=== PATIENT | male | born 1965 | race Two or more races ===

== ENCOUNTER 2018-12-13 17:09 | Emergency (ER) | payer BC ==
[~2018-12-13] VITALS: Ht 165.1 cm; Wt 117.5 kg
--- NOTE | 2018-12-13 17:15 | NUR ---
C/O WORSENING RIGHT LOWER EXTREMITY PAIN, SWELLING AND REDNESS. PT AAOX4, VSS. DENIES CP, SOB, DIZZINESS, N/V, WEAKNESS @ THIS TIME. AWAITING EVAL BY MD & WILL CONT TO MONITOR.
--- NOTE | 2018-12-13 19:47 | NUR ---
Patient discharged to home in stable condition. Written and verbal after care instructions given. Patient verbalizes understanding of instruction.
[2018-12-13 19:48] VITALS: BP 132/78
== END 2018-12-13 19:49 | disposition home or self-care (01) ==
LOC: ER 17:14
DX: R60.0 Localized edema (principal)
CPT/HCPCS: 93971; 99284; A4606; Z7610

== ENCOUNTER 2020-04-03 11:40 | Emergency (ER) | payer BC, OTHER ==
[~2020-04-03] VITALS: Ht 182.9 cm; Wt 115.7 kg
--- NOTE | 2020-04-03 11:46 | NUR ---
pt bibra from home to er bed 09 c/o L sided chest pain radiating to LUE on and off for the past 3 days. 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 awaiting md beard.
--- NOTE | 2020-04-03 11:53 | NUR ---
radiology qat bedside for chest xray.
[2020-04-03] MEDS ORDERED: NITROGLYCERIN PACKET 1 GM PACKET ONE (11:55)
[2020-04-03] MEDS ORDERED: NITROGLYCERIN PACKET 1 GM PACKET TD ONE (12:00)
[2020-04-03 12:02] LABS: BASOPHILS # (AUTO) 0.1 /CMM (0.0-0.2); BASOPHILS % (AUTO) 0.8 % (0.0-2.0); EOSINOPHILS % (AUTO) 2.3 % (0.0-6.0); HEMATOCRIT 46 % (39-51); HEMOGLOBIN 15.4 g/dL (13.5-17.5); LYMPHOCYTES # (AUTO) 1.6 /CMM (0.8-4.8); LYMPHOCYTES % (AUTO) 26.7 % (20.0-44.0); MEAN CORPUSCULAR HGB CONC 34 g/dl (31.0-36.0); MEAN CORPUSCULAR VOLUME 85 fL (80-96); MONOCYTES # (AUTO) 0.4 /CMM (0.1-1.30); MONOCYTES % (AUTO) 7.5 % (2.0-12.0); NEUTROPHILS # (AUTO) 3.8 /CMM (1.8-8.9); NEUTROPHILS % (AUTO) 62.7 % (43.0-81.0); PLATELET COUNT (AUTO) 221 /CMM (150-450); RED BLOOD CELL COUNT(AUTO) 5.37 MIL/uL (4.5-6.0)
--- NOTE | 2020-04-03 12:06 | NUR ---
pt states took viagra last night. no active chest pain. dr hwang aware.
[2020-04-03 12:12] LABS: CALCIUM, SERUM 8.4 mg/dL (8.5-10.1); CARBON DIOXIDE 31 mmol/L (21-32); CHLORIDE 101 mmol/L (98-107); CREATININE 0.9 mg/dL (0.6-1.3); GLUCOSE 112 mg/dL (74-106); POTASSIUM 4.3 mmol/L (3.5-5.1); SODIUM SERUM 137 mmol/L (136-145); UREA NITROGEN, BLOOD 22 mg/dL (7-18)
[2020-04-03 12:18] LABS: ALANINE AMINOTRANSFERASE 53 U/L (12-78); ALBUMIN 3.6 g/dL (3.4-5.0); ALKALINE PHOSPHATASE 68 U/L (46-116); ASPARTATE AMINOTRANSFERASE 22 U/L (15-37); BILIRUBIN,DIRECT 0.1 mg/dL (0.0-0.2); BILIRUBIN,TOTAL 0.4 mg/dL (0.2-1.0); TOTAL PROTEIN, SERUM 7.3 g/dL (6.4-8.2)
--- NOTE | 2020-04-03 15:00 | NUR ---
CALLED [facility] ITS SOFI
--- NOTE | 2020-04-03 15:25 | NUR ---
GOT BED 315-2
--- NOTE | 2020-04-03 15:35 | NUR ---
DR CANNON DOESN'T WANT TO ADMIT PATIENT AND INSTEAD WILL COME TO SEE PATIENT PER DR DAVIS
[2020-04-03] MEDS ORDERED: IV NS 0.9% 250 ML IV ONE (18:48)
[2020-04-03] MEDS ORDERED: CT SWABBABLE VALVE TRANS SET 1 EA INFUS.SET MC ONE (18:48)
[2020-04-03] MEDS ORDERED: IOHEXOL-350 100 ML VIAL IV ONE (18:48)
[2020-04-03] MEDS ORDERED: NITROGLYCERIN 0.4 MG/TAB BOTTLE ONE (19:06)
[2020-04-03] MEDS ORDERED: METOPROLOL TARTRATE INJ 5 MG/5 ML AMPUL ONE (19:07)
--- NOTE | 2020-04-03 19:20 | NUR ---
report to campus safety officer nurse andres rn for akash.
--- NOTE | 2020-04-03 19:21 | NUR ---
Brought to ct
--- NOTE | 2020-04-03 20:30 | NUR ---
BROUGHT BACK FROM CT
--- NOTE | 2020-04-03 22:43 | NUR ---
Patient discharged to home in stable condition. Written and verbal after care instructions given. Patient verbalizes understanding of instruction and RX. PT ambulated with steady gait. IV removed. Catheter intact and site benign. Pressure and 4x4 applied to site. No bleeding noted.
[2020-04-03 22:44] VITALS: BP 135/74
== END 2020-04-03 22:44 | disposition home or self-care (01) ==
LOC: ER 11:41
DX: I20.8 Other forms of angina pectoris (principal); E11.9 Type 2 diabetes mellitus without complications; E66.8 Other obesity; Z68.34 Body mass index [BMI] 34.0-34.9, adult
CPT/HCPCS: 36415; 71045; 75574; 80048; 80076; 84484 ×2; 85025; 87081; 93005; 99285; J3490; J7050; Q9967

== ENCOUNTER 2020-09-25 16:42 | Emergency (ER) | payer OTHER ==
[~2020-09-25] VITALS: Ht 167.6 cm; Wt 115.2 kg
--- NOTE | 2020-09-25 17:03 | NUR ---
SEEN AND EVALUATED BY LEAD MASSAGE THERAPIST WITH NEW ORDERS NOTED
--- NOTE | 2020-09-25 17:05 | NUR ---
aaox3, came to ER c/o right flank pain radiates to right lower abdomen since yesterday. RR is even and unlabored with NAD noted. Skin is warm and non diaphoretic. Awaiting md for eval.
[2020-09-25] MEDS ORDERED: ONDANSETRON HCL/PF 4 MG/2 ML VIAL ONE (17:10)
[2020-09-25] MEDS ORDERED: MORPHINE SULFATE INJ 4 MG/ML DISP.SYRIN ONE (17:11)
[2020-09-25] MEDS ORDERED: KETOROLAC TROMETHAMINE INJ 30 MG/ML VIAL ONE (17:11)
[2020-09-25 17:25] LABS: BASOPHILS # (AUTO) 0.1 /CMM (0.0-0.2); BASOPHILS % (AUTO) 1.1 % (0.0-2.0); EOSINOPHILS % (AUTO) 2.5 % (0.0-6.0); HEMATOCRIT 44 % (39-51); HEMOGLOBIN 14.9 g/dL (13.5-17.5); LYMPHOCYTES # (AUTO) 1.6 /CMM (0.8-4.8); LYMPHOCYTES % (AUTO) 29.5 % (20.0-44.0); MEAN CORPUSCULAR HGB CONC 34 g/dl (31.0-36.0); MEAN CORPUSCULAR VOLUME 86 fL (80-96); MONOCYTES # (AUTO) 0.4 /CMM (0.1-1.30); MONOCYTES % (AUTO) 6.7 % (2.0-12.0); NEUTROPHILS # (AUTO) 3.2 /CMM (1.8-8.9); NEUTROPHILS % (AUTO) 60.2 % (43.0-81.0); PLATELET COUNT (AUTO) 214 /CMM (150-450); RED BLOOD CELL COUNT(AUTO) 5.15 MIL/uL (4.5-6.0); WHITE BLOOD COUNT (AUTO) 5.3 K/uL (4.3-11.0)
[2020-09-25] MEDS ORDERED: KETOROLAC TROMETHAMINE INJ 30 MG/ML VIAL IV ONE (17:30)
[2020-09-25] MEDS ORDERED: MORPHINE SULFATE INJ 2 MG/ML DISP.SYRIN IV ONE (17:30)
[2020-09-25] MEDS ORDERED: ONDANSETRON HCL/PF 4 MG/2 ML VIAL IVP ONE (17:30)
[2020-09-25] MEDS ORDERED: IV NS 0.9% 1,000 ML BAG IV ONE (17:30)
[2020-09-25 17:43] LABS: CALCIUM, SERUM 8.5 mg/dL (8.5-10.1); CREATININE 0.9 mg/dL (0.6-1.3)
[2020-09-25 17:50] LABS: ALBUMIN 3.5 g/dL (3.4-5.0); BILIRUBIN,DIRECT 0.1 mg/dL (0.0-0.2); BILIRUBIN,TOTAL 0.4 mg/dL (0.2-1.0); TOTAL PROTEIN, SERUM 7.4 g/dL (6.4-8.2)
--- NOTE | 2020-09-25 18:20 | NUR ---
URINE COLLECTED AND SENT TO LAB
[2020-09-25 18:24] LABS: APPEARANCE,URINE CLEAR (CLEAR); BILIRUBIN,URINE NEGATIVE (NEGATIVE); BLOOD, URINE NEGATIVE Ery/uL (NEGATIVE); COLOR,URINE YELLOW (YELLOW); KETONES,URINE NEGATIVE (NEGATIVE); LEUKOCYTE ESTERASE ,URINE NEGATIVE (NEGATIVE); NITRITE, URINE NEGATIVE (NEGATIVE); PH,URINE 5.5 (5.0-8.0); PROTEIN,URINE NEGATIVE (NEGATIVE); UGLUCOSE NEGATIVE (NEGATIVE); UROBILINOGEN,URINE 0.2 EU/dL (0.2)
[2020-09-25 18:54] VITALS: BP 142/84
== END 2020-09-25 18:54 | disposition home or self-care (01) ==
LOC: ER 16:49
DX: S39.012A Strain of muscle, fascia and tendon of lower back, initial encounter (principal); R10.31 Right lower quadrant pain; I10 Essential (primary) hypertension; E11.9 Type 2 diabetes mellitus without complications; Z98.890 Other specified postprocedural states; X58.XXXA Exposure to other specified factors, initial encounter; Y93.89 Activity, other specified; Y92.89 Other specified places as the place of occurrence of the external cause; Y99.8 Other external cause status
CPT/HCPCS: 36415; 74176; 80048; 80076; 81001; 85025; 96361; 96374; 96375; 99284; J1885; J2270; J2405; J7030; 81000-TC

== ENCOUNTER 2023-02-23 04:54 | Emergency (ER) | payer OTHER ==
[~2023-02-23] VITALS: Ht 167.6 cm; Wt 108.9 kg
--- NOTE | 2023-02-23 06:10 | NUR ---
BIBS FROM HOME WITH CC OF NECK PAIN SINCE 02/21/23 AM. TOOK [place] YESTERDAY AM. NO RELIEF UNTIL NOW. PT IS AAOX4. SCALE OF 10/10. KNOWN HTN. PLACED COMFORTABLY IN BED. VITALS CHECKED.
--- NOTE | 2023-02-23 06:19 | NUR ---
SEEN BY DR PIZANO AT BEDSIDE.
[2023-02-23] MEDS ORDERED: CYCLOBENZAPRINE 10 MG TABLET ONE (06:25)
[2023-02-23] MEDS ORDERED: ACETAMINOPHEN ES 500 MG TABLET ONE (06:25)
[2023-02-23] MEDS ORDERED: KETOROLAC TROMETHAMINE INJ 30 MG/ML VIAL ONE (06:25)
[2023-02-23] MEDS ORDERED: ACETAMINOPHEN ES 500 MG TABLET PO ONE (06:30)
[2023-02-23] MEDS ORDERED: KETOROLAC TROMETHAMINE INJ 30 MG/ML VIAL IM ONE (06:30)
[2023-02-23] MEDS ORDERED: CYCLOBENZAPRINE 10 MG TABLET PO ONE (06:30)
[2023-02-23] MEDS ORDERED: CYCL10TA9 PO (07:33)
[2023-02-23 07:40] VITALS: BP 141/81
--- NOTE | 2023-02-23 07:40 | NUR ---
Patient discharged to home in stable condition. Written and verbal after care instructions given. Patient verbalizes understanding of instruction.
== END 2023-02-23 07:41 | disposition home or self-care (01) ==
LOC: ER 04:58
DX: M43.6 Torticollis (principal); I10 Essential (primary) hypertension; E11.9 Type 2 diabetes mellitus without complications; Z98.890 Other specified postprocedural states
CPT/HCPCS: 99283; 96372; J1885